=== PATIENT | male | born 1960 | race African-American/Black ===

== ENCOUNTER 2025-07-30 17:00 | Inpatient (IN) | payer MEDICARE, OTHER ==
[~2025-07-30] VITALS: Ht 188 cm; Wt 83.9 kg
[2025-07-30 17:07] VITALS: BP 127/88
[2025-07-30] MEDS ORDERED: ASPI81TA31 PO (17:29)
[2025-07-30] MEDS ORDERED: TAMS0.4C PO (17:29)
[2025-07-30] MEDS ORDERED: METO-356 PO (17:29)
[2025-07-30] MEDS ORDERED: GABA300C PO (17:29)
[2025-07-30] MEDS ORDERED: HYDR-3972 PO (17:29)
[2025-07-30] MEDS ORDERED: EMPA25TA PO (17:29)
[2025-07-30] MEDS ORDERED: TRAZ-182 PO (17:29)
[2025-07-30] MEDS ORDERED: DOCU100T2 PO (17:29)
[2025-07-30] MEDS ORDERED: ZOLP5TAB18 PO (17:29)
[2025-07-30] MEDS ORDERED: SERT-440 PO (17:29)
[2025-07-30] MEDS ORDERED: QUET50TA PO (17:29)
[2025-07-30] MEDS ORDERED: MAGNESIUM HYDROXIDE 30 ML LIQUID UDC PO PRN (17:30)
[2025-07-30] MEDS ORDERED: MAG HYDROX/AL HYDROX/SIMETH 30 ML LIQUID UDC PO PRN (17:30)
[2025-07-30] MEDS ORDERED: LORAZEPAM 0.5 MG TABLET PO PRN (17:30)
[2025-07-30] MEDS: BLOOD SUGAR DIAGNOSTIC 1 EACH STRIP VI ONE (17:42)
[2025-07-30 17:59] VITALS: BP 141/52; TEMP 97.8; O2SAT 96
[2025-07-30] MEDS ORDERED: CLOT30CR24 TP (19:10)
[2025-07-30 20:00] VITALS: BP 141/84; TEMP 97.8; O2SAT 96
[2025-07-30] MEDS: LORAZEPAM 1 MG TABLET PO PRN (20:06)
[2025-07-30] MEDS: TEMAZEPAM 7.5 MG CAPSULE PO PRN (23:30)
[2025-07-31 07:36] VITALS: BP 135/91; TEMP 98.2; O2SAT 98
[2025-07-31 07:54] LABS: ASPARTATE AMINOTRANSFERASE 13 U/L (15-37); CREATININE 0.7 mg/dL (0.6-1.3); SODIUM SERUM 144 mmol/L (136-145); TOTAL PROTEIN, SERUM 7.3 g/dL (6.4-8.2); UREA NITROGEN, BLOOD 18 mg/dL (7-18)
[2025-07-31] MEDS: DOCUSATE SODIUM 250 MG CAPSULE PO SCH (08:49)
[2025-07-31] MEDS: ASPIRIN 81 MG TAB.CHEW PO SCH (08:49)
[2025-07-31] MEDS: TAMSULOSIN HCL 0.4 MG CAP.SR.24H PO ONE (08:50)
[2025-07-31] MEDS ORDERED: TAMSULOSIN HCL 0.4 MG CAP.SR.24H PO SCH (09:00)
[2025-07-31] MEDS: EMPAGLIFLOZIN 25 MG TABLET PO SCH (09:00)
[2025-07-31] MEDS ORDERED: METOPROLOL SUCCINATE XL 25 MG TAB.SR.24H PO SCH ×2 (09:00)
[2025-07-31] MEDS ORDERED: GABAPENTIN 300 MG CAPSULE PO SCH (09:00)
[2025-07-31] MEDS ORDERED: CLOTRIMAZOLE 1% CREAM 30 GM TUBE TP SCH (09:00)
[2025-07-31] MEDS: TAMSULOSIN HCL 0.4 MG CAP.SR.24H PO SCH (11:17)
[2025-07-31] MEDS: GABAPENTIN 100 MG CAPSULE PO SCH (11:17)
[2025-07-31] MEDS: OLANZAPINE 10 MG VIAL IM ONE (11:37)
[2025-07-31] MEDS ORDERED: DEXTROSE 50% 50 ML DISP.SYRIN IV PRN (13:30)
[2025-07-31 15:08] VITALS: BP 132/86; TEMP 98; O2SAT 96
[2025-07-31] MEDS: BLOOD SUGAR DIAGNOSTIC 1 EACH STRIP VI SCH (16:58)
[2025-07-31] MEDS: INSULIN REGULAR, HUMAN 1000 UNIT/10 ML VIAL SQ PRN (16:59)
[2025-07-31] MEDS: CLOTRIMAZOLE 1% CREAM 30 GM TUBE TP SCH (17:04)
[2025-07-31 20:00] VITALS: BP 156/84; TEMP 98.1; O2SAT 99
[2025-07-31] MEDS: INSULIN REGULAR, HUMAN 300 UNITS/3 ML VIAL SQ PRN (20:55)
[2025-07-31] MEDS: QUETIAPINE FUMARATE 25 MG TABLET PO SCH (21:55)
[2025-07-31 22:53] VITALS: BP 136/87; TEMP 98.8; O2SAT 100
[2025-08-01 08:21] VITALS: BP 148/85; TEMP 98; O2SAT 98
[2025-08-01] MEDS: QUETIAPINE FUMARATE 25 MG TABLET PO SCH (09:13)
[2025-08-01] MEDS: METOPROLOL TARTRATE 25 MG TABLET PO SCH (12:11)
[2025-08-01] MEDS: LORAZEPAM 1 MG TABLET PO PRN (13:44)
[2025-08-01 15:40] VITALS: BP 142/89; TEMP 98; O2SAT 98
[2025-08-01] MEDS: ACETAMINOPHEN 325 MG TABLET PO PRN (17:44)
[2025-08-01 20:55] VITALS: BP 147/85; TEMP 98.5; O2SAT 97
[2025-08-02 08:45] VITALS: BP 141/76; TEMP 98; O2SAT 98
[2025-08-02] MEDS: OLANZAPINE 10 MG VIAL IM STA (15:35)
[2025-08-02 20:12] VITALS: BP 149/90; TEMP 98.2; O2SAT 97
[2025-08-02] MEDS: OLANZAPINE 10 MG VIAL IM ONE (21:43)
[2025-08-03 08:42] VITALS: BP 127/72; TEMP 98; O2SAT 98
[2025-08-03] MEDS: QUETIAPINE FUMARATE 25 MG TABLET PO SCH (16:30)
[2025-08-03 20:00] VITALS: BP 119/90; TEMP 97.3; O2SAT 93
[2025-08-03] MEDS: TEMAZEPAM 7.5 MG CAPSULE PO PRN (21:45)
[2025-08-04 08:07] VITALS: BP 160/89; TEMP 98; O2SAT 98
[2025-08-04 15:28] VITALS: BP 159/69; TEMP 98; O2SAT 98
[2025-08-04 20:00] VITALS: BP 128/74; TEMP 98; O2SAT 95
[2025-08-05 08:47] VITALS: BP 129/59; TEMP 98; O2SAT 98
[2025-08-05] MEDS: DIVALPROEX 250 MG TABLET.DR PO SCH (11:46)
[2025-08-05 16:50] VITALS: BP 137/64; TEMP 98; O2SAT 98
[2025-08-05 20:00] VITALS: BP 136/84; TEMP 98.1; O2SAT 97
[2025-08-06 08:05] VITALS: BP 113/81; TEMP 98.7; O2SAT 96
[2025-08-06 16:12] VITALS: BP 123/89; TEMP 97.8; O2SAT 97
[2025-08-06 20:16] VITALS: BP 133/87; TEMP 97.9; O2SAT 99
[2025-08-07 09:45] VITALS: BP 137/87; TEMP 98.2; O2SAT 98
[2025-08-07] MEDS ORDERED: DEXTROSE 50% 50 ML DISP.SYRIN IV PRN (15:00)
[2025-08-07 15:11] VITALS: BP 129/82; TEMP 98.2; O2SAT 98
[2025-08-07] MEDS: FLUCONAZOLE 100 MG TABLET PO SCH (15:42)
[2025-08-07] MEDS: QUETIAPINE FUMARATE 25 MG TABLET PO SCH ×2 (16:11→20:26)
[2025-08-07] MEDS: SERTRALINE HCL 50 MG TABLET PO SCH (16:11)
[2025-08-07] MEDS: BLOOD SUGAR DIAGNOSTIC 1 EACH STRIP VI SCH (17:04)
[2025-08-07] MEDS: INSULIN REGULAR, HUMAN 1000 UNIT/10 ML VIAL SQ PRN (17:05)
[2025-08-07 20:41] VITALS: BP 136/84; TEMP 98.1; O2SAT 98
[2025-08-07] MEDS: TRAZODONE 50 MG TABLET PO PRN (22:58)
[2025-08-08 09:13] VITALS: BP 121/87; TEMP 98; O2SAT 98
[2025-08-08 15:22] VITALS: BP 103/56; TEMP 98; O2SAT 98
[2025-08-08 20:21] VITALS: BP 136/72; TEMP 98; O2SAT 98
[2025-08-09 08:25] VITALS: BP 130/80; TEMP 98; O2SAT 98
[2025-08-09 16:19] VITALS: BP 119/81; TEMP 98; O2SAT 98
[2025-08-09 21:29] VITALS: BP 124/73; TEMP 98.1; O2SAT 95
[2025-08-10 08:58] VITALS: BP 144/79; TEMP 98; O2SAT 98
[2025-08-10 16:38] VITALS: BP 142/71; TEMP 98; O2SAT 98
[2025-08-10] MEDS ORDERED: DIVALPROEX SPRINKLE 125 MG CAP.SPRINK PO SCH (17:00)
[2025-08-10] MEDS: SERTRALINE HCL 50 MG TABLET PO SCH (17:14)
[2025-08-10 20:00] VITALS: BP 124/65; TEMP 98.1; O2SAT 95
[2025-08-11 08:00] VITALS: BP 131/90; TEMP 97.7; O2SAT 95
[2025-08-11 08:57] VITALS: BP 131/90
== END 2025-08-11 09:45 | DRG 885 ==
LOC: ER 17:00 → GPS 17:16
PROVIDERS: ADMIT Psychiatry & Neurology Psychosomatic Medicine; ATTEND Student in an Organized Health Care Education/Training Program
DX: F29 Unspecified psychosis not due to a substance or known physiological condition (principal); F02.811 Dementia in other diseases classified elsewhere, unspecified severity, with agitation; E11.9 Type 2 diabetes mellitus without complications; F02.83 Dementia in other diseases classified elsewhere, unspecified severity, with mood disturbance; G31.09 Other frontotemporal neurocognitive disorder; G47.00 Insomnia, unspecified; B36.9 Superficial mycosis, unspecified; I10 Essential (primary) hypertension; F02.818 Dementia in other diseases classified elsewhere, unspecified severity, with other behavioral disturbance; Z53.20 Procedure and treatment not carried out because of patient's decision for unspecified reasons; N40.0 Benign prostatic hyperplasia without lower urinary tract symptoms; Z79.82 Long term (current) use of aspirin; Z79.899 Other long term (current) drug therapy; Z79.84 Long term (current) use of oral hypoglycemic drugs
CPT/HCPCS: 36415; 70450; 73130; 84443; J1815; J2358; J3490